=== PATIENT | male | born 1985 | race African-American/Black ===

== ENCOUNTER 2019-08-18 06:53 | Emergency (ER) | payer OTHER ==
[~2019-08-18] VITALS: Ht 170.2 cm; Wt 67.0 kg
[2019-08-18 07:11] VITALS: BP 146/92
== END 2019-08-18 10:33 | disposition home or self-care (01) ==
LOC: ER 07:10
DX: S02.2XXA Fracture of nasal bones, initial encounter for closed fracture (principal); J45.909 Unspecified asthma, uncomplicated; V43.52XA Car driver injured in collision with other type car in traffic accident, initial encounter; Y93.89 Activity, other specified; Y92.488 Other paved roadways as the place of occurrence of the external cause
CPT/HCPCS: 99283